=== PATIENT | male | born 1980 | race Caucasian/White ===

== ENCOUNTER 2018-02-11 13:04 | Emergency (ER) | payer OTHER ==
[~2018-02-11 13:04] MED LIST: ISOVUE-370 76%-LOCM 1 ML ONE; Iopamidol 370 76% 50 ML VIAL FS ONE
[2018-02-11 13:58] LABS: #Eosinphils 0.1 thou/uL (0.0-0.7); #Lymphocytes 1.4 thou/uL (1.20-3.40); #Monocytes 0.5 thou/uL (0.11-0.59); #Neutrophils 6.7 thou/uL (1.40-6.50); %Basophils 0.6 % (0.0-1.0); %Eosinophils 1.1 % (0.0-10.0); %Lymphocytes 16.3 % (21.0-51.0); %Monocytes 5.7 % (0.0-10.0); %Neutrophils 76.4 % (42.0-75.0); Hemoglobin 14.4 g/dL (14.0-18.0); Mean Corpuscular HGB CONC 35.1 g/dL (32.0-36.0); Mean Corpuscular Hemoglobin 30.9 pg (27.0-31.0); Platelet Count 145 thou/uL (130-400); RBC Distribution Width 11.5 % (11.5-14.5); Red Blood Cell (RBC) Count 4.66 mill/uL (4.70-6.10); White Blood Cell (WBC) Count 8.8 thou/uL (4.8-10.8)
[2018-02-11 14:08] LABS: Bilirubin Negative (Negative); Blood, Urine Negative (Negative); Clarity CLEAR (Clear); Glucose, Urine (Dipstick) Negative (Negative); Leukocyte Negative (Negative); Nitrite Negative (Negative); Protein, Urine (Dipstick) Negative (Neg-Trace); Specific Gravity, Urine 1.017 (1.002-1.036); Urobilinogen 0.2 mg/dL (0.2-1.0)
[2018-02-11 14:22] LABS: ALT (SGPT) 32 U/L (8-55); AST (SGOT) 20 U/L (5-34); Albumin 4.5 g/dL (3.5-5.0); Alkaline Phosphatase 48 U/L (40-150); Anion Gap 13 mmol/L (10-20); BUN (Urea Nitrogen) 19 mg/dL (8.9-20.6); Bilirubin, Total 0.5 mg/dL (0.2-1.2); Calc. Creatinine Clearance 0 mL/min (70-130); Calcium 9.3 mg/dL (7.8-10.44); Carbon Dioxide 28 mmol/L (22-29); Chloride 103 mmol/L (98-107); Estimated GFR-MDRD 66; Globulin 2.6 g/dL (2.4-3.5); Glucose 104 mg/dL (70-105); Lipase 32 U/L (8-78); Potassium 3.6 mmol/L (3.5-5.1); Protein, Total 7.1 g/dL (6.0-8.3); Sodium 140 mmol/L (136-145)
--- NOTE | 2018-02-11 20:01 | CT ---
CT OF ABDOMEN AND PELVIS PERFORMED WITH INTRAVENOUS CONTRAST ENHANCEMENT: 02/11/18 HISTORY: Right lower quadrant abdomen pain. The lung bases are clear. There are fatty changes of the liver which is within normal limits of size of the spleen. It measures 15.8 cm. Pancreas and gallbladder regions appear unremarkable. Right and left adrenal glands are nor mal in size. The right and left kidneys are normal in size and not obstructed. There is no significan t periaortic or mesenteric lymphadenopathy. No signs of bowel obstruction. CT OF PELVIS PERFORMED WITH CONTRAST ENHANCEMENT: The appendix appears normal. No periappendiceal fat stranding. The bladder is distended. The prostate does not appear significantly enlarged. There is no evidence of adenopathy, mass or free fluid. Arthritic changes of the spine are noted. IMPRESSION: 1. Fatty changes of the liver with mild splenomegaly. 2. No CT evidence for appendicitis. 3. Distended bladder. POS: [facility]
[2018-02-11] MEDS ORDERED: Ketorolac Tromethamine 30 MG/ML VIAL ONE (21:43)
--- NOTE | 2018-02-12 00:06 | ULT ---
TESTICULAR ULTRASOUND: 02/11/18 HISTORY: Testicular pain, epididymitis. Real time imaging of the right and left testes were performed. These show normal sized testes. Small bilateral hydroceles are present. There is a large epididymal cyst on the right measuring 2.8 cm. Sma ller left epididymal cyst measures 7 mm. DOPPLER EVALUATION WITH SPECTRAL ANALYSIS: Normal flow is shown to the testes and epididymal regions. IMPRESSION: 1. Small bilateral hydroceles. 2. Large right epididymal cyst. POS: [facility]
[2018-02-14 22:40] LABS: Chlamydia by PCR Not Detected (NotDetected); GC by PCR Not Detected (NotDetected)
== END 2018-02-12 01:15 | disposition home or self-care (01) ==
LOC: ERS 13:04
DX: N45.1 Epididymitis (principal); N50.3 Cyst of epididymis
CPT/HCPCS: 36415; 74177; 76870; 80053; 81003; 83690; 85025; 87491; 87591; 93976; 96374; J1885

== ENCOUNTER → 2018-03-15 | Day surgery (SDC) | payer OTHER ==
[2018-03-08 16:07] VITALS: BMI 38.7
[~2018-03-15] MED LIST changes: +Fentanyl 100 MCG/2 ML VIAL ONE; -ISOVUE-370 76%-LOCM 1 ML ONE; -Iopamidol 370 76% 50 ML VIAL FS ONE; +Iothalamate Meglumine 60% 50 ML VIAL FS ONE; +Levofloxacin 500 mg/D5W 100 ml Premix Bag ONE; +Midazolam HCl 2 mg/2 ml Vial ONE
--- NOTE | 2018-03-15 18:45 | OP ---
DATE OF PROCEDURE: 03/15/2018 PREOPERATIVE DIAGNOSIS: Urethral stricture. POSTOPERATIVE DIAGNOSIS: Urethral stricture. PROCEDURES: Cystoscopy with optical internal urethrotomy and placement of 22-Burkinan silicone cathete r. SURGEON: Dacia Schulte M.D. ANESTHESIA: General with laryngeal mask airway. FINDINGS: Stricture of the bulbar urethra incised and bladder inspected and found without lesions. No complications, no blood loss. DRAINS: Remaining was a 22-Burkinan silicone. No specimen. INDICATIONS: The patient is a 37-year-old male who was seen in the office for urinary tract symptoms and noted to have significant residual and cystoscopy in the office documented definitive stricture that I attempted to dilate but was not able to safely pass a wire all the way through, so aborted chery t and we planned for definitive therapy in the OR. TECHNIQUE: The patient was brought into the room by Anesthesia, lying on the operating table in supi ne position. After receiving general anesthetic, legs placed in lithotomy position and his perineum was prepped and draped in sterile fashion. Using a 22-Burkinan cystoscope and 30 degree lens, the uret hra was traversed to the level of the stricture. Then, a guidewire was placed through that easily an d into the bladder and coiled without difficulty. Then, a cold knife was used to incise at the 12 o' clock margin until I could pass the 22-Burkinan scope through the stricture and into the bladder. The bladder was inspected and no lesions were noted. The ureteral orifices were in normal position. The bladder was fully drained. Then, leaving the wire in place, the scope was removed and a 22-Burkinan s ilicone catheter was placed over the wire. Wire was then removed. Live catheter balloon blown up a nd left draining to gravity. At this point, the patient was awakened and transferred to PACU in stab le condition.
== END ==
LOC: SDC 08:41
PROVIDERS: ATTEND Urology
PROC: 0TND8ZZ Release Urethra, Via Natural or Artificial Opening Endoscopic (ICD-10-PCS; principal; 2018-03-15)
DX: N35.9 Urethral stricture, unspecified (principal); N50.3 Cyst of epididymis; N45.1 Epididymitis; R33.9 Retention of urine, unspecified; R39.14 Feeling of incomplete bladder emptying; N39.0 Urinary tract infection, site not specified; G47.33 Obstructive sleep apnea (adult) (pediatric); Z79.899 Other long term (current) drug therapy
CPT/HCPCS: 96374; J1956; J2250; J3010; Q9961

== ENCOUNTER 2020-01-25 23:50 | Emergency (ER) | payer OTHER ==
[2020-01-26 00:19] LABS: Bacteria/HPF None Seen HPF (None Seen); Bilirubin Negative (Negative); Blood, Urine Negative (Negative); Clarity Clear (Clear); Glucose, Urine (Dipstick) Normal (Negative); Ketone, Urine 40 mg/dL (Negative); Leukocyte 25 Leu/uL (Negative); Mucous/LPF 4+ LPF (<2+); Nitrite Negative (Negative); Protein, Urine (Dipstick) 20 mg/dL (Neg-Trace); RBC/HPF 0-3 HPF (0-3); Specific Gravity, Urine 1.032 (1.002-1.036); Squamous Epithelial 0-3 HPF (0-3); Urobilinogen Normal mg/dL (Less than 2); pH, Urine 5.5 (5.0-9.0)
[2020-01-26 00:49] LABS: Anion Gap 14 mmol/L (10-20); BUN (Urea Nitrogen) 15 mg/dL (8.9-20.6); Calc. Creatinine Clearance 0 mL/min (70-130); Calcium 9.3 mg/dL (7.8-10.44); Carbon Dioxide 26 mmol/L (22-29); Chloride 104 mmol/L (98-107); Estimated GFR-MDRD 75; Glucose 117 mg/dL (70-105); Potassium 3.7 mmol/L (3.5-5.1); Sodium 140 mmol/L (136-145)
--- NOTE | 2020-01-26 08:01 | CT ---
PRELIMINARY REPORT/[facility]/EMERGENCY AFTER HOURS PROCEDURE EXAM: CT Abdomen and Pelvis Without Intravenous Contrast CLINICAL HISTORY: Patient is 39 yo M who has been having some generalized abdominal pain and difficulty urinating since 20:30 the evening prior to arrival. He says his urinary stream is "off and on" and only gets a small amount of urine out with each void. TECHNIQUE: Axial computed tomography images of the abdomen and pelvis without intravenous contrast. Coronal and sagittal reformatted images are provided. CONTRAST: None. COMPARISON: CTSR - CT APPENDIX PROTOCOL - 02/11/2018 07:05 PM CDT FINDINGS: LUNG BASES: No basilar airspace consolidation or pleural effusion. LIVER: Diffuse low-attenuation of the liver compatible with hepatic steatosis. No focal hepatic lesions. GALLBLADDER AND BILE DUCTS: Unremarkable. No calcified stone. No ductal dilation. PANCREAS: Unremarkable. SPLEEN: Unremarkable. ADRENAL GLANDS: Unremarkable. KIDNEYS, URETERS, AND BLADDER: There is diffuse bladder wall thickening. There is no evidence of hydronephrosis, hydroureter or ston es. STOMACH AND BOWEL: No obstruction. No wall thickening. No CT evidence of colitis or acute diverticulitis. APPENDIX: The appendix is uniformly dilated up to 9 mm without significant periappendiceal stranding and genera lly unchanged from comparison in 2018 where it measured 8 mm. PERITONEUM: No free fluid. No free air. LYMPH NODES: No lymphadenopathy. REPRODUCTIVE: Unremarkable as visualized. VASCULATURE: No aortic aneurysm. ABDOMINAL WALL AND SOFT TISSUES: Small bilateral fat-containing inguinal hernias. BONES: Mild degenerative changes in the lower lumbar spine. IMPRESSION: 1. Diffuse bladder wall thickening. Correlate for cystitis. 2. Diffuse enlargement of the appendix which may be normal for this patient and not significantly zack nged from comparison in 2018, however correlate with clinical signs and symptoms as early acute appendicitis could have a similar appearance. 3. Hepatic steatosis. ELECTRONICALLY SIGNED BY: Vitaly Cheng M.D. Jan 26, 2020 1:40:10 AM CDT This report is intended for review by the ordering physician only, in accordance of law. If you recei ve this report in error, please call [facility] at [phone]. FINAL REPORT Emergent after hours noncontrast CT abdomen and pelvis HISTORY: Generalized abdominal pain and difficulty urinating. COMPARISON: 02/11/2018. IMPRESSION: 1. Fatty infiltration of the liver. 2. Spleen is mildly enlarged in craniocaudal dimensions measuring 14.6 cm. 3. No renal or ureteral calculi are seen bilaterally, and there is no hydronephrosis. 4. Diffuse urinary bladder wall thickening. Correlation for cystitis is recommended. 5. Appendix is mildly dilated measuring up to 9 mm. Tiny appendicolith is visualized. The appendix on prior study measured approximately 8 mm in diameter. There are minimal inflammatory changes in the pelvis, but these changes are adjacent to the urinary bladder and thought to be secondary to cystitis . However, given size of the appendix correlation for clinical signs and symptoms of early acute appendicitis is suggested as this could not be entirely excluded. 6. Small fat-containing bilateral inguinal hernias. 7. Findings are in agreement with preliminary report by [facility]. Transcribed Date/Time: 01/26/2020 8:25 AM
== END 2020-01-26 03:28 | disposition home or self-care (01) ==
LOC: ERS 23:50
DX: N32.89 Other specified disorders of bladder (principal); R30.0 Dysuria; R10.31 Right lower quadrant pain; R10.32 Left lower quadrant pain; R10.815 Periumbilic abdominal tenderness
CPT/HCPCS: 36415; 74176; 80048; 81003; 81015; 87086

== ENCOUNTER 2020-01-26 14:37 | Emergency (ER) | payer OTHER ==
[2020-01-26] MEDS ORDERED: Iopamidol 370 76% 100 ML VIAL ONE (14:40)
[2020-01-26] MEDS ORDERED: Iopamidol 370 76% 50 ML VIAL FS ONE (14:40)
[2020-01-26 15:08] LABS: #Monocytes 0.5 thou/uL (0.11-0.59); #Neutrophils 4.8 thou/uL (1.40-6.50); %Basophils 0.6 % (0.0-1.0); %Eosinophils 0.7 % (0.0-10.0); %Lymphocytes 15.1 % (21.0-51.0); %Monocytes 8.3 % (0.0-10.0); %Neutrophils 75.3 % (42.0-75.0); Hemoglobin 14.8 g/dL (14.0-18.0); Mean Corpuscular HGB CONC 34.3 g/dL (32.0-36.0); Mean Corpuscular Hemoglobin 30.4 pg (27.0-31.0); Mean Corpuscular Volume 88.4 fL (78.0-98.0); Platelet Count 132 thou/uL (130-400); RBC Distribution Width 11.7 % (11.5-14.5); Red Blood Cell (RBC) Count 4.86 mill/uL (4.70-6.10); White Blood Cell (WBC) Count 6.4 thou/uL (4.8-10.8)
[2020-01-26] MEDS ORDERED: Ondansetron PF 4 MG/2 ML Vial ONE (15:26)
[2020-01-26 15:33] LABS: Band 5 % (5-11); Lymphocytes 9 % (21-51); Monocytes 2 % (0-10); Reactive Lymphocytes 7 % (0-10)
[2020-01-26 15:34] LABS: Diff Comment (RBC Morph SCRN) Normal; Platelet Morphology Comment Appears Adequate
[2020-01-26 15:35] LABS: ALT (SGPT) 34 U/L (8-55); AST (SGOT) 19 U/L (5-34); Albumin 4.4 g/dL (3.5-5.0); Alkaline Phosphatase 49 U/L (40-110); Anion Gap 12 mmol/L (10-20); BUN (Urea Nitrogen) 12 mg/dL (8.9-20.6); Bilirubin, Total 0.9 mg/dL (0.2-1.2); Calc. Creatinine Clearance 0 mL/min (70-130); Calcium 8.8 mg/dL (7.8-10.44); Carbon Dioxide 29 mmol/L (22-29); Chloride 101 mmol/L (98-107); Estimated GFR-MDRD 73; Globulin 2.3 g/dL (2.4-3.5); Glucose 99 mg/dL (70-105); Potassium 3.7 mmol/L (3.5-5.1); Protein, Total 6.7 g/dL (6.0-8.3); Sodium 138 mmol/L (136-145)
[2020-01-26 16:29] LABS: Bilirubin Negative (Negative); Blood, Urine Negative (Negative); Clarity Clear (Clear); Glucose, Urine (Dipstick) Normal (Negative); Ketone, Urine Negative (Negative); Leukocyte Negative Leu/uL (Negative); Nitrite Negative (Negative); Protein, Urine (Dipstick) Negative (Neg-Trace); Specific Gravity, Urine 1.021 (1.002-1.036); Urobilinogen Normal mg/dL (Less than 2); pH, Urine 6.5 (5.0-9.0)
[2020-01-26 16:31] LABS: Eosinophils 4 % (0-10); Neutrophil 70 % (42-75)
--- NOTE | 2020-01-26 17:41 | CT ---
CT of theabdomen and pelvis with IV and oral contrast: 01/26/2020 COMPARISON:Noncontrast enhanced exam 01/26/2020 and 02/11/2018 HISTORY:Possible appendicitis, pain TECHNIQUE: Serial axial CT imaging at5 mm intervals from thelung bases through pubic symphysis with I V and oral contrast. Coronal and sagittal reformatted imaging obtained Findings:The visualized lung bases appear unremarkable. No free intraperitoneal air or fluid is seen. The hepatic parenchyma is diffusely hypodense consistent with steatosis. The gallbladder, spleen, voss creas, adrenal glands, and kidneys are grossly unremarkable. There is prominent circumferential wall thickening of the urinary bladder, which is similar when comp ared to the prior study performed earlier 01/26/2020. No evidence for bowel obstruction is seen. The appendix abuts the posterior and right lateral aspect of the urinary bladder. The appendix measur es approximately 9-10 mm in transverse dimension, unchanged when compared to the prior studies. There is minimal fat stranding adjacent to the appendix. No evidence for large or small bowel obstruction. The vascular structures of the abdomen/pelvis appear patent. No abdominal or pelvic lymphadenopathy. Review of the osseous structures demonstrates no worrisome lytic or blastic lesion. There is disc space narrowing, degenerative endplate change, and facet hypertrophy at the lumbosacral junction. Impression:Stable appearance of the abdomen/pelvis when compared to the prior study performed earlier on 01/26/2020. There is stable mild dilation of the appendix with minimal inflammatory changes adjacent to the appendix. However, this is also adjacent to the urinary bladder which is markedly thi ck-walled. Findings may be related to cystitis, appendicitis, or a combination of the 2, and does not appear significantly changed.
[2020-01-28 12:27] LABS: SARS-CoV-2 MS2 Positive; SARS-CoV-2 N Gene Negative; SARS-CoV-2 S Gene Negative; SARS-CoV-2 orf1ab Negative
== END 2020-01-26 18:19 | disposition home or self-care (01) ==
LOC: ERS 14:37
DX: K35.80 Unspecified acute appendicitis (principal); G47.30 Sleep apnea, unspecified; Z20.828 Contact with and (suspected) exposure to other viral communicable diseases
CPT/HCPCS: 36415; 74177; 83605; 83690; 85025; 86140; 87086; 87635; 96374; J2405; Q9967; U0003

== ENCOUNTER 2020-09-17 08:44 | Day surgery (SDC) | payer OTHER ==
[2020-09-16 09:29] VITALS: BMI 41.1
[2020-09-17 08:59] LABS: #Eosinphils 0.1 thou/uL (0.0-0.7); #Lymphocytes 1.4 thou/uL (1.20-3.40); #Monocytes 0.4 thou/uL (0.11-0.59); #Neutrophils 1.9 thou/uL (1.40-6.50); %Basophils 0.9 % (0.0-1.0); %Eosinophils 2.3 % (0.0-10.0); %Lymphocytes 36.1 % (21.0-51.0); %Monocytes 11.4 % (0.0-10.0); %Neutrophils 49.3 % (42.0-75.0); Hemoglobin 14.1 g/dL (14.0-18.0); Mean Corpuscular HGB CONC 33.8 g/dL (32.0-36.0); Mean Corpuscular Hemoglobin 30.3 pg (27.0-31.0); Mean Corpuscular Volume 89.5 fL (78.0-98.0); Mean Platelet Volume 9.7 fL (7.4-10.4); Platelet Count 124 thou/uL (130-400); RBC Distribution Width 11.4 % (11.5-14.5); Red Blood Cell (RBC) Count 4.65 mill/uL (4.70-6.10); White Blood Cell (WBC) Count 3.9 thou/uL (4.8-10.8)
[2020-09-17 09:06] LABS: INR-International Normal Ratio 0.9; Prothrombin Time 12.4 sec (12.0-14.7)
[2020-09-17 13:50] VITALS: BP 153/88; TEMP 97.6
--- NOTE | 2020-09-17 16:05 | CT ---
PROCEDURE: CT Supra Pubic Catheter Plcmt Conscious sedation PROVIDED CLINICAL HISTORY: Urethral stricture. COMPARISON: None TECHNIQUE: The procedure including the risks and complications were explained to the patient, and informed conse nt was obtained. Patient was placed on the CT scan table in the prone position. Limited noncontrasted CT scan was obtained through the pelvis with grid localizer in place overlying the jennie on of the urinary bladder. Imaging demonstrates distention of the urinary bladder. Area overlying the midline lower pelvis/urinary bladder was marked, and the area was meticulously prepped and draped in usual sterile fashion. Conscious sedation was performed with intravenous administration of fentanyl and Versed, and the bai ent was monitored for approximately 30 minutes during and after the procedure. The skin and subcutaneous tissues at the intended puncture site were infiltrated with buffered 1% lid ocaine for local anesthesia. A small skin incision was made. A 14 Slovenian suprapubic catheter with stiff inner cannula and trocar were advanced into the urinary bladder. The trocar and stiff inner can nula were removed with a return of clear urine. Distal balloon was filled with 10 mL of sterile water, and the tube was placed to gravity drainage. Noncontrast CT images were obtained demonstrating the catheter within the urinary bladder. The catheter was sutured in place utilizing 2-0 Ethilon suture material, and a dry sterile dressing was placed. The patient tolerated the procedure well and without immediate complication. The patient was transpor toan to radiology nurses holding area for further monitoring prior to discharge. IMPRESSION: Technically successful CT-guided suprapubic catheter placement.
== END 2020-09-17 13:30 | disposition home or self-care (01) ==
LOC: CT 08:44
PROVIDERS: ATTEND Urology
PROC: 0T9B30Z Drainage of Bladder with Drainage Device, Percutaneous Approach (ICD-10-PCS; principal; 2020-09-17)
DX: N35.919 Unspecified urethral stricture, male, unspecified site (principal); G47.33 Obstructive sleep apnea (adult) (pediatric); I10 Essential (primary) hypertension; F39 Unspecified mood [affective] disorder; G89.29 Other chronic pain; M54.9 Dorsalgia, unspecified; M25.569 Pain in unspecified knee; Z87.891 Personal history of nicotine dependence
CPT/HCPCS: 51102; 77002; 85025; 85610; 85730; C2627

== ENCOUNTER 2020-10-14 09:03 | Outpatient (CLI) | payer OTHER ==
[2020-10-14 11:35] LABS: Hemoglobin 14.5 g/dL (13.5-17.5); Mean Corpuscular HGB CONC 33.4 g/dL (32.0-36.0); Mean Corpuscular Hemoglobin 29.2 pg (27.0-33.0); Mean Corpuscular Volume 87.3 fl (81.2-95.1); Mean Platelet Volume 12.3 fl (7.4-10.4); Platelet Count 164 10x3/uL (150-450); RBC Distribution Width 12.1 % (11.5-14.5); Red Blood Cell (RBC) Count 4.97 10x6/uL (4.32-5.72); White Blood Cell (WBC) Count 4.6 10x3/uL (3.5-10.5)
[2020-10-14 11:45] LABS: Anion Gap 12 mmol/L (10-20); BUN (Urea Nitrogen) 14 mg/dL (8.9-20.6); Calc. Creatinine Clearance 0 mL/min (70-130); Calcium 9.2 mg/dL (7.8-10.44); Carbon Dioxide 25 mmol/L (22-29); Chloride 103 mmol/L (98-107); Glucose 101 mg/dL (70-105); Potassium 4.4 mmol/L (3.5-5.1); Sodium 136 mmol/L (136-145)
[2020-10-14 12:06] LABS: PTT 30.1 sec (22.0-33.0); Prothrombin Time 10.1 sec (9.5-12.1)
[2020-10-14 22:18] LABS: SARS-CoV-2 PCR by NAA Not Detected (NotDetected)
== END 2020-10-14 09:04 | disposition home or self-care (01) ==
LOC: LABBT 09:03
PROVIDERS: ATTEND Urology
DX: Z01.818 Encounter for other preprocedural examination (principal); N35.919 Unspecified urethral stricture, male, unspecified site; Z20.822 Contact with and (suspected) exposure to COVID-19; R39.14 Feeling of incomplete bladder emptying; N39.0 Urinary tract infection, site not specified
CPT/HCPCS: 80048; 85027; 85610; 85730; 87086; 87635; 93005; 93010; U0003; U0005

== ENCOUNTER 2020-10-17 06:40 | Day surgery (SDC) | payer OTHER ==
[2020-10-16 10:23] VITALS: BMI 40.4
[2020-10-17] MEDS ORDERED: Fentanyl 100 MCG/2 ML VIAL ONE (06:56)
[2020-10-17] MEDS ORDERED: Famotidine/PF 20 mg/2ml Vial ONE (06:56)
[2020-10-17] MEDS ORDERED: Levofloxacin 500 mg/D5W 100 ml Premix Bag ONE (07:27)
[2020-10-17] MEDS ORDERED: Midazolam HCl 2 mg/2 ml Vial ONE (08:06)
[2020-10-17] MEDS ORDERED: SUGAMMADEX SODIUM 500 MG/5 ML VIAL ONE (08:25)
[2020-10-17] MEDS ORDERED: Rocuronium Bromide 10 MG/ML (10ML VIAL) ONE (08:37)
[2020-10-17] MEDS ORDERED: Metoclopramide HCl 10 MG/2 ML VIAL ONE (08:37)
[2020-10-17] MEDS ORDERED: Lidocaine 1% PF 5 ML VIAL ONE (08:37)
[2020-10-17] MEDS ORDERED: Ondansetron PF 4 MG/2 ML Vial ONE (08:37)
[2020-10-17] MEDS ORDERED: PROPOFOL 200 MG/20 ML VIAL ONE (08:37)
[2020-10-17] MEDS ORDERED: Ketorolac Tromethamine 30 MG/ML VIAL ONE (08:37)
[2020-10-17] MEDS ORDERED: Dexamethasone 20 MG/5 ML VIAL ONE (08:37)
[2020-10-17] MEDS ORDERED: B & O ONE (08:55)
[2020-10-17] MEDS ORDERED: Iothalamate Meglumine 60% 50 ML VIAL FS ONE (08:55)
== END 2020-10-17 11:24 | disposition home or self-care (01) ==
LOC: SDC 06:40
PROVIDERS: ATTEND Urology
PROC: BT14ZZZ Fluoroscopy of Kidneys, Ureters and Bladder (ICD-10-PCS; principal; 2020-10-17)
DX: N35.912 Unspecified bulbous urethral stricture, male (principal); I10 Essential (primary) hypertension; G47.33 Obstructive sleep apnea (adult) (pediatric); F32.9 Major depressive disorder, single episode, unspecified; K21.9 Gastro-esophageal reflux disease without esophagitis; J45.909 Unspecified asthma, uncomplicated; E66.9 Obesity, unspecified; G89.29 Other chronic pain; M54.9 Dorsalgia, unspecified; M25.562 Pain in left knee; M25.561 Pain in right knee; Z68.41 Body mass index [BMI] 40.0-44.9, adult; Z87.891 Personal history of nicotine dependence
CPT/HCPCS: 74420; J1100; J1885; J1956; J2250; J2405; J2704; J2765; J3010; Q9961; S0028

== ENCOUNTER 2020-11-04 08:49 | Outpatient (CLI) | payer OTHER ==
[2020-11-05 02:28] LABS: SARS-CoV-2 PCR by NAA Not Detected (NotDetected)
== END 2020-11-04 08:50 | disposition home or self-care (01) ==
LOC: LABBT 08:49
PROVIDERS: ATTEND Family Medicine
DX: Z01.818 Encounter for other preprocedural examination (principal); N35.919 Unspecified urethral stricture, male, unspecified site; J45.909 Unspecified asthma, uncomplicated; E66.9 Obesity, unspecified; G47.33 Obstructive sleep apnea (adult) (pediatric); F32.9 Major depressive disorder, single episode, unspecified; K21.9 Gastro-esophageal reflux disease without esophagitis; K76.0 Fatty (change of) liver, not elsewhere classified; N32.89 Other specified disorders of bladder; Z72.0 Tobacco use; Z20.822 Contact with and (suspected) exposure to COVID-19
CPT/HCPCS: 87086; 87635; 93005; 93010; U0003; U0005

== ENCOUNTER 2020-11-04 09:00 | Inpatient (IN) | payer OTHER ==
[2020-11-07] MEDS ORDERED: Levofloxacin 500 mg/D5W 100 ml Premix Bag ONE (06:22)
[2020-11-07] MEDS ORDERED: Midazolam HCl 2 mg/2 ml Vial ONE ×2 (06:33→07:22)
[2020-11-07] MEDS ORDERED: Fentanyl 100 MCG/2 ML VIAL ONE ×5 (06:33→12:52)
[2020-11-07] MEDS ORDERED: Bupivacaine 0.25% HCL 30 ML VIAL ONE (06:49)
[2020-11-07] MEDS ORDERED: B & O ONE (07:03)
[2020-11-07] MEDS ORDERED: Rocuronium Bromide 10 MG/ML (10ML VIAL) ONE (07:32)
[2020-11-07] MEDS ORDERED: PROPOFOL 200 MG/20 ML VIAL ONE (07:32)
[2020-11-07] MEDS ORDERED: Labetalol HCl 100 MG/20 ML VIAL ONE (07:32)
[2020-11-07] MEDS ORDERED: Lidocaine 1% PF 5 ML VIAL ONE (07:32)
[2020-11-07] MEDS ORDERED: Ondansetron PF 4 MG/2 ML Vial ONE (07:32)
[2020-11-07] MEDS ORDERED: Glycopyrrolate 0.2 MG/ML 5 ML SYRINGE ONE (07:32)
[2020-11-07] MEDS ORDERED: Dexamethasone 20 MG/5 ML VIAL ONE (07:32)
[2020-11-07] MEDS ORDERED: Sodium Chloride 0.9% 10 ML ONE (08:18)
[2020-11-07] MEDS ORDERED: Neomycin-Polymyxin 1 ML AMP ONE (08:18)
[2020-11-07] MEDS ORDERED: Ondansetron HCl/PF 4 MG/2 ML Vial IVP PRN (10:45)
[2020-11-07] MEDS ORDERED: Promethazine HCl 25 MG/ML VIAL IM PRN (10:45)
[2020-11-07] MEDS ORDERED: Promethazine HCl 25 MG/ML VIAL SLOW IVP PRN (10:45)
[2020-11-07] MEDS ORDERED: Meperidine HCl/PF 25 MG/ML VIAL SLOW IVP PRN (10:45)
[2020-11-07] MEDS ORDERED: Ondansetron PF 4 MG/2 ML Vial IVP PRN (11:53)
[2020-11-07] MEDS ORDERED: Mag-Al 1200 mg/1200 mg/30 ML UDCUP PO PRN (11:53)
[2020-11-07] MEDS ORDERED: Morphine 2 MG/ML VIAL SLOW IVP PRN (11:53)
[2020-11-07] MEDS ORDERED: Oxybutynin 5 MG TAB PO PRN (11:53)
[2020-11-07] MEDS ORDERED: hydrALAZINE 20 MG/ML VIAL SLOW IVP PRN (11:53)
[2020-11-07] MEDS ORDERED: diphenhydrAMINE 25 MG CAP PO PRN (11:53)
[2020-11-07] MEDS ORDERED: Acetaminophen 500 MG TAB PO PRN (11:53)
[2020-11-07] MEDS ORDERED: Sodium Chloride 0.9% 1,000 ML IV SCH (12:00)
[2020-11-07] MEDS: Morphine 4 MG/ML VIAL SLOW IVP PRN ×2 (14:19→17:56)
[2020-11-07] MEDS: cefOXitin 1.5 GM in Sodium Chloride 0.9% 100 ML IVPB SCH ×2 (14:21→21:37)
[2020-11-07 14:45] VITALS: BMI 41.2
[2020-11-07] MEDS: HYDROcodone/Acetaminophen 5/325 mg Tablet PO PRN ×2 (16:17→20:38)
[2020-11-07] MEDS ORDERED: Cepastat Lozenges 1 LOZ PO PRN (17:56)
[2020-11-07] MEDS: Docusate 100 MG CAP PO SCH (20:38)
[2020-11-08] MEDS: cefOXitin 1.5 GM in Sodium Chloride 0.9% 100 ML IVPB SCH (06:02)
[2020-11-08] MEDS: HYDROcodone/Acetaminophen 5/325 mg Tablet PO PRN ×4 (06:06→18:09)
[2020-11-08] MEDS: Docusate 100 MG CAP PO SCH ×2 (08:24→21:00)
[2020-11-08] MEDS ORDERED: Sulfameth/Trimethoprim DS 800-160mg TAB PO SCH (12:00)
[2020-11-08] MEDS: Morphine 4 MG/ML VIAL SLOW IVP PRN (17:12)
[2020-11-08] MEDS: Sulfameth/Trimethoprim DS 800-160mg TAB PO SCH (21:01)
[2020-11-09] MEDS: HYDROcodone/Acetaminophen 5/325 mg Tablet PO PRN ×4 (00:16→14:47)
[2020-11-09] MEDS: Sulfameth/Trimethoprim DS 800-160mg TAB PO SCH (07:57)
[2020-11-09] MEDS: Docusate 100 MG CAP PO SCH (07:57)
[2020-11-09 11:48] VITALS: TEMP 98
[2020-11-09 11:50] VITALS: BP 124/80
== END 2020-11-09 15:20 | disposition home or self-care (01) | DRG 671 ==
LOC: SURG A 11-07 06:04 → EDSTATUS 11-07 09:00 → SURG B 11-07 13:24
PROVIDERS: ADMIT Urology; ATTEND Urology
PROC: 0TQD8ZZ Repair Urethra, Via Natural or Artificial Opening Endoscopic (ICD-10-PCS; principal; 2020-11-07)
DX: N35.912 Unspecified bulbous urethral stricture, male (principal); Z68.41 Body mass index [BMI] 40.0-44.9, adult; R33.9 Retention of urine, unspecified; I10 Essential (primary) hypertension; G47.33 Obstructive sleep apnea (adult) (pediatric); K21.9 Gastro-esophageal reflux disease without esophagitis; F32.9 Major depressive disorder, single episode, unspecified; J45.909 Unspecified asthma, uncomplicated; E66.9 Obesity, unspecified; K76.0 Fatty (change of) liver, not elsewhere classified; N30.20 Other chronic cystitis without hematuria; G89.29 Other chronic pain; Z83.3 Family history of diabetes mellitus; Z87.891 Personal history of nicotine dependence; Z99.89 Dependence on other enabling machines and devices; Z82.49 Family history of ischemic heart disease and other diseases of the circulatory system; Z80.49 Family history of malignant neoplasm of other genital organs
CPT/HCPCS: 87077; 87086; 87186; 87635; 88305; 93005; 93010; J0690; J0694; J1100; J1956; J2250; J2270; J2405; J2704; J3010; J3490; S0020; U0003; U0005

== ENCOUNTER 2020-11-21 10:15 | Outpatient (CLI) | payer OTHER ==
[2020-11-21] MEDS ORDERED: Iopamidol-370 76% 500 ML 1 ML ONE (11:41)
== END 2020-11-21 10:16 | disposition home or self-care (01) ==
LOC: RAD 10:15
PROVIDERS: ATTEND Urology
DX: N35.011 Post-traumatic bulbous urethral stricture (principal)
CPT/HCPCS: 51600; 74455; Q9967

== ENCOUNTER 2024-08-31 11:11 | Outpatient (CLI) | payer BC | END 2024-08-31 11:12 | disposition home or self-care (01) | LOC: RAD 11:11 | PROVIDERS: ATTEND Internal Medicine | DX: J40 Bronchitis, not specified as acute or chronic (principal) | CPT/HCPCS: 71046 ==